=== PATIENT | male | born 1975 | race Caucasian/White ===

== ENCOUNTER 2017-07-30 11:09 | Emergency (ER) | payer SELFPAY ==
--- NOTE | 2017-07-30 11:51 | ER Document Report ---
ED Extremity Problem, Lower - General Chief Complaint: Foot Pain Stated Complaint: LEFT FOOT PAIN Time Seen by Provider: 07/30/17 11:41 Notes: 42 yo male c/o pain to left foot x 2 days. pt reports he was crouching down on balls of feet when he felt a pop on the side of his foot and has had pain since then. hurts to walk. no previous injury TRAVEL OUTSIDE OF THE [place] IN LAST 30 DAYS: No - HPI Patient complains to provider of: Pain Location: Foot - left Occurred: Yesterday Onset/Duration: Sudden Quality of pain: Sharp Recent injury: Possibly Exacerbated by: Walking Relieved by: Nothing - Related Data Allergies/Adverse Reactions: No Known Allergies Allergy (Unverified 07/30/17 11:16) Home Medications: Current Home Medications No Home Medications 07/30/17 [History] Past Medical History - General Information source: Patient - Social History Smoking Status: Never Smoker Chew tobacco use (# tins/day): No Frequency of alcohol use: None Drug Abuse: None Lives with: Family Family History: Reviewed & Not Pertinent Patient has suicidal ideation: No Patient has homicidal ideation: No - Medical History Medical History: Negative Renal/ Medical History: Denies: Hx Peritoneal Dialysis Surgical Hx: Negative - Immunizations Hx Diphtheria, Pertussis, Tetanus Vaccination: Yes Review of Systems - Review of Systems Constitutional: No symptoms reported EENT: No symptoms reported Cardiovascular: No symptoms reported Respiratory: No symptoms reported Gastrointestinal: No symptoms reported Genitourinary: No symptoms reported Male Genitourinary: No symptoms reported Musculoskeletal: See HPI Skin: No symptoms reported Hematologic/Lymphatic: No symptoms reported Neurological/Psychological: No symptoms reported Physical Exam - Vital signs Vitals: Temp Pulse Resp BP Pulse Ox 98.8 F 106 H 20 151/82 H 98 07/30/17 11:15 07/30/17 11:15 07/30/17 11:15 07/30/17 11:15 07/30/17 11:15 Interpretation: Normal - General General appearance: Appears well, Alert - HEENT Head: Normocephalic, Atraumatic Eyes: Normal Pupils: PERRL - Respiratory Respiratory status: No respiratory distress Chest status: Nontender Breath sounds: Normal Chest palpation: Normal - Cardiovascular Rhythm: Regular Heart sounds: Normal auscultation Murmur: No - Abdominal Inspection: Normal Distension: No distension Bowel sounds: Normal Tenderness: Nontender Organomegaly: No organomegaly - Back Back: Normal, Nontender - Extremities General upper extremity: Normal inspection, Nontender, Normal color, Normal ROM , Normal temperature General lower extremity: Colleen's sign Foot: Tender - focal tenderness to proximal base of left 5th metatarsal. no edema or deformity. - Neurological Neuro grossly intact: Yes Cognition: Normal Orientation: AAOx4 [place] Coma Scale Eye Opening: Spontaneous Joslyn Coma Scale Verbal: Oriented [place] Coma Scale Motor: Obeys Commands Joslyn Coma Scale Total: 15 Speech: Normal Motor strength normal: LUE, RUE, LLE, RLE Sensory: Normal - Psychological Associated symptoms: Normal affect, Normal mood - Skin Skin Temperature: Warm Skin Moisture: Dry Skin Color: Normal Course - Re-evaluation Re-evalutation: 07/30/17 12:49 xray suspicious for fracture at proximal base of 5th metatarsal which is consistant with exam. results reviewed with patient. splinted and crutch instruction given. pt referred to ortho. stable for discharge - Vital Signs Vital signs: Temp Pulse Resp BP Pulse Ox 98.8 F 106 H 20 151/82 H 98 07/30/17 11:15 07/30/17 11:15 07/30/17 11:15 07/30/17 11:15 07/30/17 11:15 Discharge - Discharge Clinical Impression: Fracture of fifth metatarsal bone of left foot Qualifiers: Encounter type: initial encounter Fracture type: closed Fracture alignment: nondisplaced Qualified Code(s): S92.355A - Nondisplaced fracture of fifth metatarsal bone, left foot, initial encounter for closed fracture Condition: Stable Disposition: HOME, SELF-CARE Instructions: Foot Fracture ([facility]), Splint Pending Casting ([facility]), Use of Crutches ([facility]), Ice & Elevation ([facility]) Additional Instructions: Your xray is showing a fracture at the base of the 5th metarasal wear splint for protection and support use crutches until seen by orthopedist call orthopedist BROOKS for follow up appointment and further treatment Forms: Elevated Blood Pressure Referrals: ANEL SEAMAN MD [ACTIVE STAFF] - Follow up as needed
[2017-07-30 13:05] VITALS: BP 144/83
--- NOTE | 2017-07-30 13:15 | RADIOLOGY REPORT (SQ) ---
EXAM DESCRIPTION: FOOT LEFT COMPLETE COMPLETED DATE/TIME: 07/30/2017 11:54 am REASON FOR STUDY: injured foot, felt pop at prox base 5th metarsal COMPARISON: None. NUMBER OF VIEWS: Three views. TECHNIQUE: AP, lateral and oblique radiographic images acquired of the left foot. LIMITATIONS: None. FINDINGS: MINERALIZATION: Normal. BONES: Acute transverse nondisplaced nonangulated fracture proximal left 5th metatarsal metaphysis wi thout definite extension into the 5th metatarsophalangeal joint. JOINTS: No effusions. SOFT TISSUES: Lateral foot soft tissue swelling. No foreign body. OTHER: No other significant finding. IMPRESSION: Acute transverse nondisplaced nonangulated fracture proximal left 5th metatarsal metaphy sis without definite extension into the 5th metatarsophalangeal joint TECHNICAL DOCUMENTATION: JOB ID: [id number] [employer]- All Rights Reserved
== END 2017-07-30 13:04 | disposition home or self-care (01) ==
LOC: EDSEX → ER 11:09
DX: S92.355A Nondisplaced fracture of fifth metatarsal bone, left foot, initial encounter for closed fracture (principal); M79.672 Pain in left foot; X58.XXXA Exposure to other specified factors, initial encounter
CPT/HCPCS: 99283